=== PATIENT | male | born 2000 | race Caucasian/White ===

== ENCOUNTER 2025-08-10 01:46 | Emergency (ER) | payer BC, SELFPAY ==
--- OUTSIDE RECORDS SUMMARY | 2025-08-10 01:48 | XMS_ITS | Clinical Summary ---
Author Organization [facility] Address [address] [place] [address] Care Team Providers Care Spudder Name Role Phone Vivek Saeed MBBS Unavailable [phone] Johnathan Grigsby DO Primary Care Provider [phone] Allergies No known active allergies Medications No known medications Active Problems ProblemNoted DateDiagnosed DateMast cell activation gkhreskx35/24/2017POTS (postural orthostatic tachycardia syndrome)06/16/2014Fructose intolerance 03/30/2014djustment reaction with physical sbzqlkyv75/24/2012 Overview (05/19/2012): Rule out anxiety History of chicken pox02/01/2012 Overview (02/01/2012): Had illness in November 2000 after his 1st varicella shot in 1999 Abdominal pain10/15/2011llergic rhinitis, cause ucmcimzblyx48/30/2007Other symptoms involving respiratory system and chest12/23/2006 Overview (12/23/2006): seizure disorder work-up DX: Breath holding events Immunizations ImmunizationAdministration DatesNext DueAMB Influenza, (Flumist) Live Intranasal,LAIV4 (Flu Clinic Only)06/15/2015,06/24/2013COVID-19 vaccine (Moderna 50mcg/0.5mL) 12YO+ BIVALENT PF, MDV6621KLyA17/26/2005,10/10/2000, 09/26/2000,1999,1999,1999HIB-HepB (Comvax)07/26/2001, 1999,1999HPV 9 (Gardasil 9)11/25/2017Hepatitis A (Peds)11/25/2017, 04/05/2014Human Papilloma Virus Fkoepll0704/05/2014Inactivated Polio Vaccine 01/18/2005,03/14/2000,1999,1999Influenza, IIV3 (Age 6-35 mos) 05/17/2009Influenza, IIV3 (Age >=3 years)07/01/2007,10/01/2006,08/11/2003 Influenza, WRQ723/06/2016Influenza,CCIIV4 PRESERV FREE09/03/2022Influenza,LAIV3 Live Intranasal (Flumist)06/24/2013,07/03/2010Influenza,LAIV4 Live Intranasal (Flumist)09/09/2012MENINGOCOCCAL VACCINE 2 VIAL 2MO-55YO (MENVEO)11/25/2017, 02/01/2012MMR01/18/2005,06/11/2000Pneumococcal conj 7-Valent (Prevnar 7) 12/24/2000,09/26/2000Tdap02/01/2012Varicella Fjertxj4004/05/2014,06/11/2000 Family History Medical HistoryRelationNameCommentsGood HealthBrotherGood HealthFatherGood HealthMotherRelationNameStatusCommentsBrotherFatherMother Social History Tobacco UseTypesPacks/DayYears UsedDateSmoking Tobacco: NeverSmokeless Tobacco: Never Tobacco Cessation:Counseling Given: Yes Comments:no exposure Alcohol UseStandard Drinks/WeekCommentsYes0 (1 standard drink = 0.6 oz pure alcohol)some wine a monthPHQ-2AnswerDate RecordedPHQ-2 TOTAL [id number] and Gender InformationValueDate RecordedSex Assigned at BirthNot on fileLegal GsnPyuz0709/08/2012 5:39 AM CSTGender IdentityNot on fileSexual OrientationNot on fileOccupationIndustryJob Start DateJob End DatestudentNot on fileNot on fileNot on fileNot on fileNot on fileNot on fileNot on file Last Filed Vital Signs Vital SignReadingTime TakenCommentsBlood Woqgxnzf097/7004/ 9:03 AM CDT Emuja842112/13/2023 9:03 AM OIQMvezszhnivb04.1 ??C (98.8 ??F)07/04/2017 4:18 PM CSTRespiratory Hnim3907 5:15 PM CDTOxygen Wepxqslwhr40%12/13/2023 9:03 AM CDTInhaled Oxygen Concentration--Hjjmgn44.1 kg (165 lb 9.6 oz)12/13/2023 9:03 AM VXTVkygnn258.3 cm (6' 5.68)12/13/2023 9:03 AM CDTBody Mass Index19.3 12/13/2023 9:03 AM CDT Plan of Treatment DateTypeDepartmentCare Team (Latest Contact Info)Vrkdydxysdz31/17/2025 10:50 AM CSTOffice Visit [facility] [address] [place] [address] Sergio Jin MD [address] [place] [address] Health MaintenanceDue DateLast DoneCommentsPneumococcal series for age 6-49 (1 of 2 - PCV), 09/26/2000Tetanus husmipe91 BMI (ht and wt on same day) for age 18+, 11/25/2017, 07/04/2017Depression screening for age 12+, 11/25/2017, 06/04/2017, Additional history existsCOVID-19 vaccine series (2 - 2024- season)/04/2023Influenza Vaccine (#1)501/04/2023, 06/05/2016, 06/15/2015, Additional history existsHepatitis B series for 19+ Prlcxmouv02/01/2001, 1999, 1999HPV series for age 9-45Completed 11/25/2017, 04/05/2014HIV for age 15-31Bivzqhecz35/19/2024Hepatitis C screening for age 18-00Pgcpcvobo08/19/2024 Procedures Procedure NamePriorityDate/TimeAssociated DiagnosisCommentsANTI HIV 1/2Routine 12/13/2023 9:31 AM CDT Screening examination for STD (sexually transmitted disease) ANTI HVQWyqoorl55/19/2024 9:31 AM CDT Need for hepatitis C screening test from Last 3 Months or Most Recently Relevant to Health Maintenance Results * ANTI HCV (12/13/2023 9:31 AM CDT)ComponentValueRef RangeTest MethodAnalysis TimePerformed AtPathologist SignatureHEPATITIS C ANTIBODYNon-Reactive Non-Pmvwhbmz91/19/2024 5:51 PM [facility] Comment:Please note, per www.CDC.gov: If a patient is known to be at high risk of HCV infection, or is symptomatic, and the physician's suspicion of HCV infection is high, HCV RNA testing is often employed and is of diagnostic value, even after an initial negative anti-HCV test result.Specimen (Source) Anatomical Location / LateralityCollection Method / VolumeCollection Time Received TimeBloodBLOOD SPECIMEN / UnknownVenipuncture / Lznwwre6612/13/2023 9:31 AM CDT12/13/2023 10:20 AM CDT Narrative Authorizing ProviderResult TypeResult StatusAdei Maykelqra DOSEND OUTSFinal Result Performing OrganizationAddressCity/State/ZIP CodePhone Number [facility] [address] [place] [address], * ANTI HIV 1/2 (12/13/2023 9:31 AM CDT)ComponentValueRef RangeTest Method Analysis TimePerformed AtPathologist SignatureHIV-1/HIV-2 SCREENNon-Reactive Non-Knjnnkfl34/19/2024 5:48 PM [facility]AL[facility] Comment:HIV-1 p24 and HIV-1/HIV-2 Ab Not Detected.Specimen (Source)Anatomical Location / LateralityCollection Method / VolumeCollection TimeReceived Time BloodBLOOD SPECIMEN / UnknownVenipuncture / Rvwtpvl0112/13/2023 9:31 AM CDT 12/13/2023 10:20 AM CDT Narrative Authorizing ProviderResult TypeResult StatusAdei Seb DOSEND OUTSFinal Result Performing OrganizationAddressCity/State/ZIP CodePhone Number [facility] [address] [place] [phone], from Last 3 Months or Most Recently Relevant to Health Maintenance Insurance * Guarantor: Sami Castillo TypeRelation to PatientDate of PhoneBilling AddressPersonal/SujyfeAozl2000 [address] [id number] * Guarantor: TENZIN CASTILLO TypeRelation to PatientDate of BirthPhone Billing AddressPersonal/EjrguzPhwjmr[birth year][address] [place] [place] [address] * Guarantor: Olga CASTILLO TypeRelation to PatientDate of BirthPhone Billing AddressWorkers UzhsOgugcw97/24/1968 [address] [address] Care Teams Team MemberRelationshipSpecialtyStart DateEnd Date Johnathan Grigsby DO [address] [place] [address] [facility] - [facility] Vivek Saeed MBBS [address] [address] GastroenterologyGastroenterology - Cvztqcjen34/17/11
[2025-08-10 01:53] VITALS: BP 127/81; PULSE 71; RESP 18; TEMP 36.5; O2SAT 99; BMI 19.6
[2025-08-10 01:57] LABS: Appearance Urine Clear (Clear)
--- NOTE | 2025-08-10 02:08 | CRLHL7_ITS ---
For Patients: As a result of the Century Cures Act, medical imaging exams and procedure reports are released immediately into your electronic medical record. You may view this report before your referring provider. If you have questions, please contact your health care provider. INDICATION: Left testicle pain and swelling TECHNIQUE: Ultrasound scrotum and contents. Real-time virgen scale sonographic images with spectral and color Doppler imaging of the testicles were obtained. COMPARISON: 12/28/2017 FINDINGS: Right testis: 5.7 x 2.5 x 3.4 cm. The right testis is normal in appearance and echotexture. Normal arterial and venous blood flow seen in the right testis. Left testis: 5.7 x 3 x 3.6 cm. The left testis is normal in appearance and echotexture. Asymmetrically decreased blood flow is seen within the left testis. Epididymis: The left epididymis is enlarged, heterogeneous and hypervascular in appearance. Soft tissue: A small simple left hydrocele is present. No adenopathy is seen. IMPRESSIONS: 1. Asymmetrically decreased blood flow is seen within the left testis. Findings may be due to partial or intermittent torsion. 2. The left epididymis is enlarged, heterogeneous and hypervascular in appearance. Findings can be due to torsion or epididymitis. The findings were verbally communicated with Dr. Ibarra at 3:09 AM. Dictated by Kike Duran MD @ 08/10/2025 3:07:10 AM Dictated by: Kike Duran MD @ 08/10/2025 03:11:30 (Electronically Signed)
--- NOTE | 2025-08-10 02:09 | ED_ITS ---
HPI - Male Genitourinary General Chief complaint: Urogenital Problems, Male Stated complaint: swollen testicle Time Seen by Provider: 08/10/25 02:02 Source: patient Mode of arrival: ambulatory Limitations: no limitations History of Present Illness HPI Narrative: 25-year-old male presents to the emergency department for 24 hours of swelling of the left testicle and scrotum area. No injury or trauma. Reports that he had a history of epididymitis several years ago, pain feels similar. No prior surgery to the area. No dysuria, no difficulty voiding. Tried taking 200 mg of ibuprofen 5 hours ago with limited temporary improvement. Denies STD risk. Nursing notes reviewed. No abdominal symptoms, vomiting or fever. Reports benign past medical history, no major long-term health problems. Denies prior general surgery. No allergies. Social history reviewed. ROS notable for the scrotal swelling, otherwise denies times other generalized, GI, , skin changes. Related Data Home Medications ?Medication ?Instructions ?Recorded ?Confirmed No Known Home Medications 07/12/2307/26 Allergies Allergy/AdvReac Type Severity Reaction Status Date / Time No Known Drug Allergies Allergy Verified 08/10/25 01:55 [facility] Social History Smoking Status: Current some day smoker What tobacco products do you use: cigarettes Do you use any of these nicotine containing products: Vaping Products Second hand tobacco smoke exposure: Yes How often do you have a drink containing alcohol: never AUDIT-C Alcohol total score: 0 Non-prescribed substance use: marijuana (any form) Exam Const: Vital Signs, click to edit/add: Vital Signs - 24 hr 08/10/25 01:53 Temperature 97.7 F Pulse Rate [Right Pulse Oximeter] 71 Respiratory Rate 18 Blood Pressure [Ri ght Upper Arm] 127/81 Pulse Oximetry 99 Oxygen Delivery Me thod Room Air Documenting provider has reviewed patient's vital signs: yes Common normals: no apparent distress General appearance: cooperative and well kempt HENMT: Common normals: normocephalic Head and scalp: normocephalic Face and sinus: normal facial exam Eye: General eye: normal appearance of both eyes Resp: Common normals: normal respiratory effort Effort & inspection: able to speak in complete sentences Cardio: Common normals: regular rate, regular rhythm, S1 normal heart sound, S2 normal heart sound and no murmurs Rate: regular rate Rhythm: regular rhythm Heart sounds: S1 normal and S2 normal GI: Common normals: Normal to inspection, nondistended, normoactive bowel soun ds present and soft to palpation Palpation: soft : Other: Right testicle normal, normal cremaster reflex. No mass. Left scrotum with swelling, transilluminates consistent with hydrocele, or significant edema. The left testicle is tender to the touch, low lying and difficult to tell the cremasteric reflex due to swelling. Unfortunately, due to the swelling I am really not able to manipulate that testicle it does feel fairly hard and fixed. Extremity: Common normals: normal to inspection and normal capillary refill Psych: Appearance: well kempt Attitude: engaged Activity/motor behavior: appropriate eye contact Attention/concentration: attention grossly intact Skin: Common normals: no rashes or lesions noted General skin exam: no rashes or lesions noted Course Course ED Course: 25-year-old male with left scrotal pain and testicle pain with transillumination and edema worrisome for torsion. Cannot exclude hydrocele, neoplasm, infection, abscess, other pathology. Urinalysis is collected and pending. Recommend ultrasound. Patient will be given 800 mg of ibuprofen p.o. x1 while we await ultrasound findings. Counseled patient that it will take some time as the tech will be called in from home, study has to be performed and it can take an hour to get results. Will await these findings and I will update him when results are available. Consider transfer. Reevaluation(s) Time of Reevaluation #1: 03:20 Reevaluation #1: After speaking with our general surgeon and confirming that they do not treat testicular torsion, I called [facility] for transfer. I explained to them that the patient seems to have a presentation consistent with a partial torsion and does still have some blood flow but I do think that he needs specialty intervention right away. I spoke with the ED physician and they have recommended code 3 transfer to the [facility] ED. Will place a peripheral IV and transfer via BLS ground ambulance right away. I relayed these findings to patient who was understanding of my concerns and is agreeable to transfer, consent obtained. Will push images up to [facility] for coordination of care. Vital Signs Vital signs: Initial Vital Signs Temperature 97.7 F 08/10/25 01:53 Temperature Source Temporal Artery Scan 08/10/25 01:53 Pulse Rate 71 08/10/25 01:53 Respiratory Rate 18 08/10/25 01:53 Blood Pressure 127/81 08/10/25 01:53 Blood Pressure Mean 96 08/10/25 01:53 Blood Pressure Position Sitting 08/10/25 01:53 Pulse Oximetry 99 08/10/25 01:53 Oxygen Delivery Method Room Air 08/10/25 01:53 Vital Signs Temperature 97.7 F 08/10/25 01:53 Pulse Rate 71 08/10/25 01:53 Respiratory Rate 18 08/10/25 01:53 Blood Pressure 127/81 08/10/25 01:53 Pulse Oximetry 99 08/10/25 01:53 Oxygen Delivery Method Room Air 08/10/25 01:53 Temperature 97.7 F 08/10/25 01:53 Pulse Rate 71 08/10/25 01:53 Respiratory Rate 18 08/10/25 01:53 Blood Pressure 127/81 08/10/25 01:53 Pulse Oximetry 99 08/10/25 01:53 Oxygen Delivery Method Room Air 08/10/25 01:53 Medications Administered Medications: Discontinued Medications Generic Name Dose Route Start Last Admin Trade Name Angelo PRN Reason Stop Dose Admin Ibuprofen 800 mg 08/10/25 02:08 08/10/25 02:12 Ibuprofen 400 Mg Tablet PO 08/10/25 02:09 800 mg ONCE ONE Administration MDM - Male Genitourinary Medical Records Attestation: I reviewed the patient's medical records. Lab Data Attestation: I reviewed the patient's lab results. Labs: Lab Results 08/10/25 Range/Units 01:50 Urine Color Yellow (Yellow) Urine Appearance Clear (Clear) Urine pH 6.0 (5.0-8.5) Ur Specific [place] >= 1.030 (1.000-1.030) Urine Protein Negative (Negative) Urine Glucose (UA) Negative (Negative) Urine Ketones Negative (Negative) Urine Blood Negative (Negative) Urine Nitrite Negative (Negative) Urine Bilirubin Negative (Negative) Urine Urobilinogen 0.2 (0.2-1.0) Ur Leukocyte Esterase Negative (Negative) Urine RBC 0-2 (0-2) Urine WBC 0-2 (0-5) Ur Squamous Epith Cells Few (None-Few) Urine Bacteria Few A (None) Urine Mucus Many A (None) Imaging Data Scrotal ultrasound: Attestation: I have reviewed the pertinent imaging results. My impression: Images reviewed, not in my scope to interpret Radiologist's impression: IMPRESSIONS: 1. Asymmetrically decreased blood flow is seen within the left testis. Findings may be due to partial or intermittent torsion. 2. The left epididymis is enlarged, heterogeneous and hypervascular in appearance. Findings can be due to torsion or epididymitis. The findings were verbally communicated with Dr. Ibarra at 3:09 AM. Dictated by Kike Duran MD @ 08/10/2025 3:07:10 AM Dictated by: Kike Duran MD @ 08/10/2025 03:11:30 Discharge Plan Discharge Clinical Impression: Intermittent torsion of testicle Patient Disposition: Xfer Other Discharge Location: [facility] [place] Instructions: Testicular Torsion (ED) Prescriptions: No Action No Known Home Medications Stand Alone Forms: [facility] Inst[facility]
[2025-08-10] MEDS: IBUPROFEN 400 MG TABLET 800 MG PO (02:12)
[2025-08-10 03:35] VITALS: BP 129/81; PULSE 71; RESP 18; TEMP 36.7; O2SAT 99
[2025-08-10 03:43] VITALS: TEMP 36.7
== END 2025-08-10 04:03 | disposition other institution (70) ==
PROVIDERS: Emergency Provider Family Medicine; PCP Family Medicine
DX: N44.00 Torsion of testis, unspecified (principal)
CPT/HCPCS: 76870; 81001; 87086; 93976; 99283; 99285; A9270

== ENCOUNTER 2025-08-10 03:51 | Outpatient (CLI) | payer BC, SELFPAY | END 2025-08-10 03:52 | disposition home or self-care (01) | LOC: AMB 08-12 12:32 | PROVIDERS: PCP Family Medicine; Visit Provider Family Medicine | DX: N44.00 Torsion of testis, unspecified (principal) | CPT/HCPCS: A0425; A0427 ==

== ENCOUNTER 2025-08-16 09:58 | Emergency (ER) | payer BC, SELFPAY ==
[2025-08-16 10:01] VITALS: BP 117/76; PULSE 70; RESP 18; TEMP 36.6; O2SAT 97
--- NOTE | 2025-08-16 10:13 | CRLHL7_ITS ---
For Patients: As a result of the Century Cures Act, medical imaging exams and procedure reports are released immediately into your electronic medical record. You may view this report before your referring provider. If you have questions, please contact your health care provider. Indication: Right-sided testicular pain 6 days status post surgery. Technique: Ultrasound of the scrotum and contents. Sonographic virgen-scale images were obtained with spectral and color Doppler waveform and spectral waveform analysis of the testicles. Comparison: 08/10/2025. Findings: Both testicles are normal in size and echotexture. No masses. No suspicious calcifications. Arterial and venous color Doppler blood flow and spectral waveforms are present in both testicles. Epididymis: Unremarkable bilaterally apart from an 8 mm right epididymal head cyst. Normal blood flow. Other: No significant hydrocele. No sign of varicocele. Scrotal wall is normal. Impression: 1. No evidence for testicular torsion. No acute findings. 2. 8 mm right epididymal head cyst. Otherwise, unremarkable scrotal ultrasound. Dictated by Sergio Jacinto MD @ 08/16/2025 11:09:13 AM (Electronically Signed)
--- OUTSIDE RECORDS SUMMARY | 2025-08-16 10:15 | XMS_ITS | Clinical Summary ---
Author Organization [facility] Address [address] [place] [address] Care Team Providers Care Chief Marketing Officer Name Role Phone Vivek Saeed MBBS Unavailable Johnathan Grigsby DO Primary Care Provider [phone] Allergies No known active allergies Medications No known medications Active Problems ProblemNoted DateDiagnosed DateMast cell activation /24/2017POTS (postural orthostatic tachycardia syndrome)06/16/2014Fructose intolerance 03/30/2014djustment reaction with physical /24/2012 Overview (05/19/2012): Rule out anxiety History of chicken pox02/01/2012 Overview (02/01/2012): Had illness in November 2000 after his 1st varicella shot in 1999 Abdominal pain10/15/2011llergic rhinitis, cause oiyfwmpfjbi97/30/2007Other symptoms involving respiratory system and chest12/23/2006 Overview (12/23/2006): seizure disorder work-up DX: Breath holding events Immunizations ImmunizationAdministration DatesNext DueAMB Influenza, (Flumist) Live Intranasal,LAIV4 (Flu Clinic Only)06/15/2015,06/24/2013COVID-19 vaccine (Moderna 50mcg/0.5mL) 12YO+ BIVALENT PF, MDV6379GIuL02/26/2005,10/10/2000, 09/26/2000,1999,1999,1999HIB-HepB (Comvax)07/26/2001, 1999,1999HPV 9 (Gardasil 9)11/25/2017Hepatitis A (Peds)11/25/2017, 04/05/2014Human Papilloma Virus Sdhcbrs3604/05/2014Inactivated Polio Vaccine 01/18/2005,03/14/2000,1999,1999Influenza, IIV3 (Age 6-35 mos) 05/17/2009Influenza, IIV3 (Age >=3 years)07/01/2007,10/01/2006,08/11/2003 Influenza, NPZ089/06/2016Influenza,CCIIV4 PRESERV FREE09/03/2022Influenza,LAIV3 Live Intranasal (Flumist)06/24/2013,07/03/2010Influenza,LAIV4 Live Intranasal (Flumist)09/09/2012MENINGOCOCCAL VACCINE 2 VIAL 2MO-55YO (MENVEO)11/25/2017, 02/01/2012MMR01/18/2005,06/11/2000Pneumococcal conj 7-Valent (Prevnar 7) 12/24/2000,09/26/2000Tdap02/01/2012Varicella Ghpgsft7004/05/2014,06/11/2000 Family History Medical HistoryRelationNameCommentsGood HealthBrotherGood HealthFatherGood HealthMotherRelationNameStatusCommentsBrotherFatherMother Social History Tobacco UseTypesPacks/DayYears UsedDateSmoking Tobacco: NeverSmokeless Tobacco: Never Tobacco Cessation:Counseling Given: Yes Comments:no exposure Alcohol UseStandard Drinks/WeekCommentsYes0 (1 standard drink = 0.6 oz pure alcohol)some wine a monthPHQ-2AnswerDate RecordedPHQ-2 TOTAL [id number] and Gender InformationValueDate RecordedSex Assigned at BirthNot on fileLegal OlcZxfj2409/08/2012 5:39 AM CSTGender IdentityNot on fileSexual OrientationNot on fileOccupationIndustryJob Start DateJob End DatestudentNot on fileNot on fileNot on fileNot on fileNot on fileNot on fileNot on file Last Filed Vital Signs Vital SignReadingTime TakenCommentsBlood Ximjqids173/7004 9:03 AM CDT Vkivs000612/13/2023 9:03 AM CXBDsbfexwsuon79.1 ??C (98.8 ??F)07/04/2017 4:18 PM CSTRespiratory Gerb0064 5:15 PM CDTOxygen Jctknetikg67%12/13/2023 9:03 AM CDTInhaled Oxygen Concentration--Vztaei89.1 kg (165 lb 9.6 oz)12/13/2023 9:03 AM RDBWvtnnw551.3 cm (6' 5.68)12/13/2023 9:03 AM CDTBody Mass Index19.3 12/13/2023 9:03 AM CDT Plan of Treatment Health MaintenanceDue DateLast DoneCommentsPneumococcal series for age 6-49 (1 of 2 - PCV), 09/26/2000Tetanus pztnyca39 BMI (ht and wt on same day) for age 18+, 11/25/2017, 07/04/2017Depression screening for age 12+, 11/25/2017, 06/04/2017, Additional history existsCOVID-19 vaccine series (2 - 2024- season)/04/2023Influenza Vaccine (#1)/04/2023, 06/05/2016, 06/15/2015, Additional history existsHepatitis B series for 19+ Wnbxehfmn35/01/2001, 1999, 1999HPV series for age 9-45Completed 11/25/2017, 08/11/2014HIV for age 15-41Kmofpyody75/19/2024Hepatitis C screening for age 18-25Pakjbujqa20/19/2024 Procedures Procedure NamePriorityDate/TimeAssociated DiagnosisCommentsANTI HIV 1/2Routine 12/13/2023 9:31 AM CDT Screening examination for STD (sexually transmitted disease) ANTI XJXZzbfbgs02/19/2024 9:31 AM CDT Need for hepatitis C screening test from Last 3 Months or Most Recently Relevant to Health Maintenance Results * ANTI HCV (12/13/2023 9:31 AM CDT)ComponentValueRef RangeTest MethodAnalysis TimePerformed AtPathologist SignatureHEPATITIS C ANTIBODYNon-Reactive Non-Msftxthe67/19/2024 5:51 PM [facility] Comment:Please note, per www.CDC.gov: If a [...] Time Received TimeBloodBLOOD SPECIMEN / UnknownVenipuncture / Zarrbtg6212/13/2023 9:31 AM CDT12/13/2023 10:20 AM CDT Narrative Authorizing ProviderResult TypeResult StatusAdei Shaqra DOSEND OUTSFinal Result Performing OrganizationAddressCity/State/ZIP CodePhone Number [facility] [address] [place] [address], * ANTI HIV 1/2 (12/13/2023 9:31 AM CDT)ComponentValueRef RangeTest Method Analysis TimePerformed AtPathologist SignatureHIV-1/HIV-2 SCREENNon-Reactive Non-Kwwihbwn72/19/2024 5:48 PM [facility] Comment:HIV-1 p24 and HIV-1/HIV-2 Ab Not Detected.Specimen (Source)Anatomical Location / LateralityCollection Method / VolumeCollection TimeReceived Time BloodBLOOD SPECIMEN / UnknownVenipuncture / Kfcybbu7412/13/2023 9:31 AM CDT 12/13/2023 10:20 AM CDT Narrative Authorizing ProviderResult TypeResult StatusAdei Seb DOSEND OUTSFinal Result Performing OrganizationAddressCity/State/ZIP CodePhone Number [facility] [address] [place] [address], from Last 3 Months or Most Recently Relevant to Health Maintenance Care Teams Team MemberRelationshipSpecialtyStart DateEnd Date Johnathan Grigsby DO [address] [place] [address] PCP - GeneralFamily Practice09/01/24 Vivek Saeed MBBS [address] [facility] [address] [place] [address] GastroenterologyGastroenterology - Gttjsxcjz04/17/11
--- NOTE | 2025-08-16 10:34 | ED.GENADULT ---
HPI - General Adult General Date Seen: 08/16/25 Chief complaint: Urogenital Problems, Male Stated complaint: testicular torsion Time Seen by Provider: 08/16/25 10:12 History of Present Illness HPI narrative: Patient is a 25-year-old who was here 1 week ago and diagnosed with testicular torsion, transferred to [place] and had surgery. This was on the left. He comes in today complaining of right testicular pain; he says it does not feel the same as it did on the left but it has been persistent for the past several days and he became concerned that it might be the same problem. He has a little bit of swelling but not excessive. He says the left side actually feels fine. Related Data Home Medications ?Medication ?Instructions ?Recorded ?Confirmed No Known Home Medications 07/12/23 08/16/25 Allergies Allergy/AdvReac Type Severity Reaction Status Date / Time No Known Drug Allergies Allergy Verified 08/16/25 10:05 PFSH PFS Social History Smoking Status: Current some day smoker What tobacco products do you use: cigarettes Do you use any of these nicotine containing products: Vaping Products Second hand tobacco smoke exposure: Yes How often do you have a drink containing alcohol: never AUDIT-C Alcohol total score: 0 Non-prescribed substance use: marijuana (any form) Exam Narrative: Exam Narrative: Vital signs reviewed In general, alert, nontoxic male. He looks comfortable. Abdomen: Soft and nontender. : He has an incision on the scrotum which looks intact, no significant scrotal edema, erythema. Some tenderness really over both testicles right maybe a little bit more than the left. Testicle is not high riding. Const: Vital Signs, click to edit/add: Vital Signs - 24 hr 08/16/25 10:01 Temperature 98 F Pulse Rate [Right Pulse Oximeter] 70 Respiratory Rate 18 Blood Pressure [Ri ght Upper Arm] 117/76 Pulse Oximetry 97 Oxygen Delivery Me thod Room Air Course Course ED Course: Patient had an immediate ultrasound to confirm flow to the right testicle. Fortunately, this does confirm good flow, he has a small epididymal cyst, but no other acute findings. No evident postoperative complications such as hematoma or infection, I think it is reasonable to discharge home, pain control with ibuprofen or Tylenol, follow-up as planned. Return at any time for acute or worsening symptoms. Diagnosis scrotal pain. Recent testicular torsion. Vital Signs Vital signs: Initial Vital Signs Temperature 98 F 08/16/25 10:01 Temperature Source Temporal Artery Scan 08/16/25 10:01 Pulse Rate 70 08/16/25 10:01 Pulse Rhythm Regular 08/16/25 10:01 Pulse Strength 3+ Normal 08/16/25 10:01 Respiratory Rate 18 08/16/25 10:01 Blood Pressure 117/76 08/16/25 10:01 Blood Pressure Mean 89 08/16/25 10:01 Blood Pressure Position Sitting 08/16/25 10:01 Pulse Oximetry 97 08/16/25 10:01 Oxygen Delivery Method Room Air 08/16/25 10:01 Vital Signs Temperature 98 F 08/16/25 10:01 Pulse Rate 70 08/16/25 10:01 Respiratory Rate 18 08/16/25 10:01 Blood Pressure 117/76 08/16/25 10:01 Pulse Oximetry 97 08/16/25 10:01 Oxygen Delivery Method Room Air 08/16/25 10:01 Temperature 98 F 08/16/25 10:01 Pulse Rate 70 08/16/25 10:01 Respiratory Rate 18 08/16/25 10:01 Blood Pressure 117/76 08/16/25 10:01 Pulse Oximetry 97 08/16/25 10:01 Oxygen Delivery Method Room Air 08/16/25 10:01 Medical Decision Making Imaging Data Scrotal ultrasound: Attestation: I have reviewed the pertinent imaging results. Radiologist's impression: Patient: Sami De Oliviera MR#: [id number] : 2000 Acct:[id number] Loc: ED Service Date: 08/16/[address]: Ordering Physician: Amairani Lauren M.D. Date of Service: 08/16/25 Procedure(s): US scrotum Accession Number(s): [id number] cc: Amairani Lauren M.D.; Provider,Not a Local~ For Patients: As a result of the Cures Act, medical imaging exams and procedure reports are released immediately into your electronic medical record. You may view this report before your referring provider. If you have questions, please contact your health care provider. Indication: Right-sided testicular pain 6 days status post surgery. Technique: Ultrasound of the scrotum and contents. Sonographic virgen-scale images were obtained with spectral and color Doppler waveform and spectral waveform analysis of the testicles. Comparison: 08/10/2025. Findings: Both testicles are normal in size and echotexture. No masses. No suspicious calcifications. Arterial and venous color Doppler blood flow and spectral waveforms are present in both testicles. Epididymis: Unremarkable bilaterally apart from an 8 mm right epididymal head cyst. Normal blood flow. Other: No significant hydrocele. No sign of varicocele. Scrotal wall is normal. Impression: 1. No evidence for testicular torsion. No acute findings. 2. 8 mm right epididymal head cyst. Otherwise, unremarkable scrotal ultrasound. Dictated by Sergio Jacinto MD @ 08/16/2025 11:09:13 AM Discharge Plan Discharge Clinical Impression: Post-op pain Patient Disposition: Home, Self-Care Condition: Stable Instructions: Pain Management After Surgery (DC) Additional Instructions: Your ultrasound is reassuring. Please follow any instructions given to you at the time of surgery. You can use ibuprofen and or Tylenol as needed for pain. If you have significant worsening of symptoms or new symptoms such as marked swelling or redness of the scrotum, return to the ER at any time. Prescriptions: No Action No Known Home Medications Follow Up/Referrals: Marbin Lemus MD [Staff Physician, Family Practice] Stand Alone Forms: [employer] Info Instructions
== END 2025-08-16 11:33 | disposition home or self-care (01) ==
PROVIDERS: Emergency Provider Emergency Medicine
DX: N50.811 Right testicular pain (principal); G89.18 Other acute postprocedural pain
CPT/HCPCS: 76870; 93976; 99284